=== PATIENT | male | born 1945 | race Caucasian/White ===

== ENCOUNTER → 2024-07-02 | Outpatient (CLI) | payer MEDICARE, SELFPAY ==
[2024-07-02] MEDS: SODIUM CHLORIDE RT SOL 0.9% 3 ML NEBU INH (10:24)
[2024-07-02 10:30] VITALS: PULSE 50
[2024-07-02] MEDS: ALBUTEROL RT 2.5 MG/0.5 ML NEBU INH (10:30)
[2024-07-02 10:32] VITALS: PULSE 51; RESP 20; O2SAT 98
[2024-07-02 10:44] VITALS: PULSE 50; RESP 20; O2SAT 96
== END | disposition home or self-care (01) ==
LOC: SRTX 08:58
PROVIDERS: PCP Family Medicine; Referring Provider Specialist; Visit Provider Specialist
DX: R06.02 Shortness of breath (principal)
CPT/HCPCS: 94060; 94640; 94726; 94729

== ENCOUNTER → 2024-10-03 | Outpatient (CLI) | payer MEDICARE, BC, SELFPAY ==
[2024-10-03 13:47] LABS: Basophils # (Auto) 0.0 Thou/mm3 (0.0-0.2); Basophils % (Auto) 1 % (0-2.5); Eosinophils # (Auto) 0.0 Thou/mm3 (0.0-0.5); Eosinophils % (Auto) 1 % (0-10); Hematocrit 39.1 % (41.0-53.0); Hemoglobin 13.4 g/dL (13.5-16.0); Immature Granulocytes Auto 0.05 Thou/mm3 (0.00-0.00); Lymphocytes # (Auto) 1.3 Thou/mm3 (1.0-4.8); Lymphocytes % (Auto) 30 % (10-50); Mean Corpuscular HGB Conc 34.3 g/dl (31.0-37.0); Mean Corpuscular Hemoglobin 35.4 pg (25.0-35.0); Mean Corpuscular Volume 103 fL (80-100); Monocytes # (Auto) 0.5 Thou/mm3 (0.0-0.8); Monocytes % (Auto) 13 % (0-12); Neutrophils # (Auto) 2.3 Thou/mm3 (1.8-7.7); Neutrophils % (Auto) 54 % (37-80); Nucleated Red Blood Cell # 0.00 Thou/mm3 (0.00-0.00); Nucleated Red Blood Cell % 0 /100 WBC (0); Platelet Count 119 Thou/mm3 (140-440); RDW Standard Deviation 46.1 fL (35.1-43.9); Red Blood Count 3.79 Miln/mm3 (4.50-5.90); White Blood Count 4.3 Thou/mm3 (3.8-10.6)
[2024-10-03 14:08] LABS: Alanine Aminotransferase 24 U/L (10-49); Albumin, Serum 4.2 gm/dL (3.4-4.8); Albumin/Globulin Ratio 2.0 (1.2-2.2); Alkaline Phosphatase 83 U/L (46-116); Anion Gap 3 (7-16); Aspartate Amino Transferase 19 U/L (0-34); BUN/Creatinine Ratio 22 Ratio (12-20); Bilirubin,Total 0.7 mg/dL (0.3-1.2); Blood Urea Nitrogen 20 mg/dL (9-23); Calcium 9.5 mg/dL (8.3-10.6); Calcium (Corrected) 9.5 mg/dL (8.5-10.1); Carbon Dioxide 30.4 mMol/L (20.0-31.0); Chloride 111 mMol/L (98-107); Creatinine (Component) 0.9 mg/dL (0.6-1.3); Globulin 2.1 gm/dL (2.3-3.5); Glucose 107 mg/dL (74-106); Osmolality,Calculated 289 (275-295); Potassium 4.8 mMol/L (3.4-5.1); Sodium 144 mMol/L (136-145); Total Protein 6.3 gm/dL (5.7-8.2); eGFR > 60 See Note
== END | disposition home or self-care (01) ==
LOC: COPL 12:27
PROVIDERS: PCP Family Medicine; Referring Provider Family Medicine; Visit Provider Family Medicine
DX: Z01.818 Encounter for other preprocedural examination (principal); I10 Essential (primary) hypertension
CPT/HCPCS: 36415; 80053; 85025

== ENCOUNTER → 2024-11-05 | Outpatient (CLI) | payer MEDICARE, BC, SELFPAY ==
[2024-11-05 13:42] LABS: Basophils # (Auto) 0.0 Thou/mm3 (0.0-0.2); Basophils % (Auto) 1 % (0-2.5); Eosinophils # (Auto) 0.0 Thou/mm3 (0.0-0.5); Eosinophils % (Auto) 1 % (0-10); Hematocrit 42.6 % (41.0-53.0); Hemoglobin 14.5 g/dL (13.5-16.0); Immature Granulocytes Auto 0.03 Thou/mm3 (0.00-0.00); Lymphocytes # (Auto) 1.1 Thou/mm3 (1.0-4.8); Lymphocytes % (Auto) 28 % (10-50); Mean Corpuscular HGB Conc 34.0 g/dl (31.0-37.0); Mean Corpuscular Hemoglobin 35.5 pg (25.0-35.0); Mean Corpuscular Volume 104 fL (80-100); Monocytes # (Auto) 0.5 Thou/mm3 (0.0-0.8); Monocytes % (Auto) 12 % (0-12); Neutrophils # (Auto) 2.4 Thou/mm3 (1.8-7.7); Neutrophils % (Auto) 59 % (37-80); Nucleated Red Blood Cell # 0.00 Thou/mm3 (0.00-0.00); Nucleated Red Blood Cell % 0 /100 WBC (0); Platelet Count 148 Thou/mm3 (140-440); RDW Standard Deviation 48.8 fL (35.1-43.9); Red Blood Count 4.09 Miln/mm3 (4.50-5.90); White Blood Count 4.1 Thou/mm3 (3.8-10.6)
[2024-11-05 17:32] LABS: Path Review Blood Smear Sent to Pathologist
== END | disposition home or self-care (01) ==
PROVIDERS: PCP Family Medicine; Referring Provider Family Medicine; Visit Provider Family Medicine
DX: D50.9 Iron deficiency anemia, unspecified (principal)
CPT/HCPCS: 36415; 85025

== ENCOUNTER → 2024-12-26 | Outpatient (CLI) | payer MEDICARE, BC, SELFPAY ==
[2025-01-01 07:10] LABS: Testosterone, Free,Dialysis 30.4 pg/mL (30.0-135.0); Testosterone, Total, Dialysis 195 ng/dL (250-1100)
== END | disposition home or self-care (01) ==
LOC: COPL 10:35
PROVIDERS: PCP Family Medicine; Referring Provider Family Medicine; Visit Provider Family Medicine
DX: R79.9 Abnormal finding of blood chemistry, unspecified (principal)
CPT/HCPCS: 36415; 84402; 84403

== ENCOUNTER 2025-01-03 16:28 | Emergency (ER) | payer MEDICARE, BC, SELFPAY ==
[2025-01-03 16:29] VITALS: BMI 39.7
[2025-01-03 17:05] VITALS: BP 175/98; PULSE 88; RESP 18; TEMP 36.6; O2SAT 100
--- NOTE | 2025-01-03 17:06 | EKG_ITS ---
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1945 Requested By: Anton Boone Order Number: [id number] Reading MD: Anton Boone Measurements Intervals [place] Rate: 50 P: -20 WA: 261 QRS: -58 QRSD: 141 T: -70 QT: 433 QTc: 396 Interpretive Statements SINUS BRADYCARDIA WITH FIRST DEGREE AV BLOCK LEFT AXIS DEVIATION [QRS AXIS < -30] RIGHT BUNDLE BRANCH BLOCK [120+ ms QRS DURATION, UPRIGHT V1, 40+ ms S IN I/aVL/V4/V5/V6] MODERATE T-WAVE ABNORMALITY, CONSIDER INFERIOR ISCHEMIA [-0.1+ mV T-WAVE IN II/aVF] Compared to ECG 02/08/2024 09:04:12 First degree AV block now present Left-axis deviation now present Left anterior fascicular block no longer present Myocardial infarct finding no longer present T-wave abnormality still present Possible ischemia still present /store/S0/[id number]/ecg/[id number].pdf
--- NOTE | 2025-01-03 17:06 | XR_ITS ---
Examination: PA lateral chest 2 views Technique: Upright PA lateral chest 2 views Date and time: January 03, 2025, 1715 hrs., Comparison September 25, 2023 Indications: Chest pain shortness of breath weakness beginning 2 days ago Findings: Mild enlargement cardiac contour Median sternotomy wires Prosthetic aortic valve satisfactory position Increased AP dimension chest Moderate thoracic spondylosis with mild chronic wedging mid to upper dorsal vertebral bodies Multiple old right-sided rib fractures with mild right lateral bony hemithorax deformity No pneumonia or pulmonary edema Blunting of the right lateral and posterior costophrenic angle Impression: Mild enlargement cardiac contour COPD. No pneumonia or pulmonary edema
--- NOTE | 2025-01-03 17:06 | PD.EDRME ---
Rapid Medical Screening Exam E Arrival date/time: 01/03/25 16:28 79-year-old male with a history of hyperlipidemia, hypothyroidism, mitral valve replacement, presents to the emergency room with a chief complaint of shortness of breath and bilateral lower extremity swelling x 4 days I have greeted and performed a focused initial assessment of this patient. A comprehensive ED assessment and evaluation of the patient, analysis of all test results, and completion of the medical decision making process will be conducted by additional ED providers. Chief Complaint: Shortness of Breath/Dyspnea Vital signs: Vital Signs Temperature 98 F 01/03/25 17:05 Pulse Rate 88 01/03/25 17:05 Respiratory Rate 18 01/03/25 17:05 Blood Pressure 175/98 H 01/03/25 17:05 Pulse Oximetry (%) 100 01/03/25 17:05 Oxygen Delivery Method Room Air 01/03/25 17:05 Vital signs reviewed by provider: Yes
[2025-01-03 17:26] LABS: Basophils # (Auto) 0.0 Thou/mm3 (0.0-0.2); Basophils % (Auto) 1 % (0-2.5); Eosinophils # (Auto) 0.1 Thou/mm3 (0.0-0.5); Eosinophils % (Auto) 1 % (0-10); Hematocrit 34.5 % (41.0-53.0); Hemoglobin 11.8 g/dL (13.5-16.0); Immature Granulocytes Auto 0.08 Thou/mm3 (0.00-0.00); Lymphocytes # (Auto) 0.9 Thou/mm3 (1.0-4.8); Lymphocytes % (Auto) 18 % (10-50); Mean Corpuscular HGB Conc 34.2 g/dl (31.0-37.0); Mean Corpuscular Hemoglobin 35.9 pg (25.0-35.0); Mean Corpuscular Volume 105 fL (80-100); Monocytes # (Auto) 0.4 Thou/mm3 (0.0-0.8); Monocytes % (Auto) 8 % (0-12); Neutrophils # (Auto) 3.4 Thou/mm3 (1.8-7.7); Neutrophils % (Auto) 70 % (37-80); Nucleated Red Blood Cell # 0.00 Thou/mm3 (0.00-0.00); Nucleated Red Blood Cell % 0 /100 WBC (0); Platelet Count 105 Thou/mm3 (140-440); RDW Standard Deviation 46.8 fL (35.1-43.9); Red Blood Count 3.29 Miln/mm3 (4.50-5.90); White Blood Count 4.8 Thou/mm3 (3.8-10.6)
[2025-01-03 17:43] LABS: INR 1.1 (0.9-1.3); Partial Thromboplastin Time 21.9 Seconds (22.0-36.0); Prothrombin Time 11.5 Seconds (9.0-12.2)
[2025-01-03 17:47] LABS: Alanine Aminotransferase 49 U/L (10-49); Albumin, Serum 3.6 gm/dL (3.4-4.8); Albumin/Globulin Ratio 2.0 (1.2-2.2); Alkaline Phosphatase 63 U/L (46-116); Anion Gap 7 (7-16); Aspartate Amino Transferase 25 U/L (0-34); BUN/Creatinine Ratio 24 Ratio (12-20); Bilirubin,Total 0.9 mg/dL (0.3-1.2); Blood Urea Nitrogen 22 mg/dL (9-23); Calcium 9.6 mg/dL (8.3-10.6); Calcium (Corrected) 9.9 mg/dL (8.5-10.1); Carbon Dioxide 27.1 mMol/L (20.0-31.0); Chloride 114 mMol/L (98-107); Creatinine (Component) 0.9 mg/dL (0.6-1.3); Estimated Creatinine Clearance 89.7 mL/min (>60); Globulin 1.8 gm/dL (2.3-3.5); Glucose 116 mg/dL (74-106); Magnesium 2.0 mg/dL (1.6-2.6); Osmolality,Calculated 298 (275-295); Potassium 5.2 mMol/L (3.4-5.1); Sodium 148 mMol/L (136-145); Total Protein 5.4 gm/dL (5.7-8.2); Troponin I < 0.020 ng/mL (0.0-0.045); eGFR > 60 See Note
[2025-01-03 17:48] LABS: B-Type Natriuretic Peptide 536 pg/mL (0-100)
--- NOTE | 2025-01-03 18:21 | PD.EDSOB ---
ED SOB =RME/HPI General Chief Complaint: Shortness of Breath/Dyspnea Stated Complaint: SOB, SWELLING TO HANDS,FEET, FACE, STOMACH Time Seen by Provider: 01/03/25 18:14 Arrival date/time: 01/03/25 16:28 RME / HPI RME / HPI Narrative: 01/03/25 16:28 79-year-old male with a history of hyperlipidemia, hypothyroidism, mitral valve replacement, presents to the emergency room with a chief complaint of shortness of breath and bilateral lower extremity swelling x 4 days I have greeted and performed a focused initial assessment of this patient. A comprehensive ED assessment and evaluation of the patient, analysis of all test results, and completion of the medical decision making process will be conducted by additional ED providers. See MDM for Dr. Parker's Main ED Evaluation. Related Data Home Medications ?Medication ?Instructions ?Recorded ?Confirmed levothyroxine 200 mcg tablet 200 mcg PO QDAY 02/10/20 02/09/24 loratadine 10 mg tablet (Claritin) 10 mg PO QDAY 02/10/20 02/09/24 clopidogrel 75 mg tablet 75 mg PO BID 09/24/23 02/09/24 rosuvastatin 10 mg tablet 10 mg PO QDAY 09/24/23 09/24/23 aspirin 81 mg tablet 81 mg PO QDAY 02/09/24 02/09/24 Previous Rx's ?Medication ?Instructions ?Recorded furosemide 40 mg tablet (Lasix) 40 mg PO QAM #30 tabs 01/03/25 Allergies Allergy/AdvReac Type Severity Reaction Status Date / Time No Known Allergies Allergy Verified 01/03/25 16:29 Review of Systems Review of Systems Systems Reviewed: All systems reviewed, normal except as documented Past Medical History Past Medical History NEUROLOGIC: Negative Neurological Disorders, Cerebrovascular Accident, Transient Ischemic Attacks (TIA), Dementia, Alzheimer's Disease, Parkinson's Disease, Brain Tumor, Meningitis, Seizures, Epilepsy, Multiple Sclerosis, Cerebral Palsy, Guillain-[place] Syndrome, Spina Bifida, Paralysis, Peripheral Neuropathy, Tucker's Palsy, Subdural Hematoma, Migraine, Head Trauma, Spinal Cord Injury or Traumatic Brain Injury CARDIAC: Positive Cardiac Disorders, Heart Murmur and Valvular Heart Disease (8yrs aortic valve replaced); Negative Myocardial Infarction, Cardiac Arrhythmia, Atrial Fibrillation, Angina, Coronary Artery Disease, Atherosclerotic Heart Disease, Peripheral Vascular Disease, Hypercholesterolemia, Aneurysm, Congestive Heart Failure, Congenital Heart Disease, Rheumatic Fever, Cardiomyopathy, Edema, Pericarditis, Cellulitis, Deep Vein Thrombosis, Hypertension, Hypotension or Varicose Veins RESPIRATORY: Positive Sleep Apnea (cpap at night); Negative Chronic Obstructive Pulmonary Disease (COPD), Asthma or Bronchitis GASTROINTESTINAL: Positive Diverticulitis and Obesity; Negative Gastrointestinal Disorders, Hepatitis, Cirrhosis, Pancreatitis, Celiac Disease, Gall Bladder Disease, Gastrointestinal Bleed, Esophageal Varices, Queen's Esophagus, Colitis, Ulcerative Colitis, Diverticulosis, Ulcer, Colorectal Cancer, Irritable Bowel, Crohn's Disease, Obstructive Bowel, Hiatal Hernia, Hemorrhoids or Gastroesophageal Reflux Disease GENITOURINARY: Positive Genitourinary Disorders and Benign Prostatic Hyperplasia; Negative Renal Disease, Kidney Stones, Polycystic Kidney Disease, Neurogenic Bladder, Inguinal Hernia, Dialysis or Prostate Cancer REPRODUCTIVE: Negative Breast Cancer, Genital Herpes, Gonorrhea, Syphilis or Testicular Cancer MUSCULOSKELETAL: Positive Fractures (multiple left forarm; right ring finger rods); Negative Musculoskeletal Disorders, Muscular Dystrophy, Myasthenia Gravis, Marfan's Syndrome, Bone Cancer, Arthritis, Rheumatoid Arthritis, Osteoporosis, Degenerative Disk Disease, Gout, Scoliosis, Carpal Tunnel Syndrome, Fibromyalgia, Degenerative Joint Disease, Osteomyelitis or Poliovirus ENT: Positive Cataracts (bilateral eyes); Negative Glaucoma, Blind, Retinal Detachment, Macular Degeneration, Ear Infection, Deafness, Head Trauma or Eye Prosthesis ENDOCRINE: Positive Hyperthyroidism and Graves' Disease; Negative Endocrine Disorders, Diabetes Mellitus Type 1, Diabetes Mellitus Type 2, Hypoglycemia, Anita's Syndrome, Brockton's Disease, Hypothyroidism, Parathyroid Disease, Pituitary Disease, Systemic Lupus Erythematosus, Syndrome of Inappropriate Antidiuretic Hormone (SIADH) or Adrenal Disease HEMATOLOGIC: Negative Blood Disorders, Anemia, Leukemia, Hemophilia, Thalassemia, Sickle Cell Disease or Clotting Problems PSYCHO/SOCIAL: Positive Attention Deficit Disorder and Attention Deficit Hyperactivity Disorder; Negative Psychiatric Problems, Schizophrenia, Recreational Drug Use, Bipolar Disorder, Depression, Anxiety, Behavior Problems, Self-Mutilation, Depression, Post Traumatic Stress Disorder or Eating Disorder OTHER HISTORY: Positive Blood Transfusions, Radiation Therapy, Chicken Pox and Cancer; Negative Autoimmune Disease, Down Syndrome, Autism, Developmental Delay, Falls, Blood Transfusion Reaction, Anesthesia Reactions, Organ Transplant, Chemotherapy, Hyperbaric Therapy, MRSA, VRSA, Vancomycin-Resistant Enterococci, Measles, Mumps, Rubella (Belizean Measles), Pertussis, Clostridium Difficile, Breast Cancer, Colorectal Cancer, Lung Cancer, Ovarian Cancer, Prostate Cancer or Testicular Cancer Family History FAMILY HISTORY: Positive Family Cardiac Disorders; Negative Family Psychiatric Problems, Family Gastrointestinal Problems or Family Cancer Surgical History SURGICAL: Positive Cardiac Surgery, Open Heart Surgery, Valve Replacement, Coronary Stent (stent 4yrs), Cardiac Catheterization, Angiogram, Thyroidectomy, Abdominal Surgery, Joint Replacement (left forarm x2) and Vasectomy; Negative Coronary Artery Bypass Graft, Vascular Surgery, Pacemaker, Auto Implanted Cardiovert Defib, Carotid Endarterectomy, Endocrine Surgery, Ear Surgery, Tympanostomy Tube, Eye Surgery, Nose Surgery, Oral Surgery, Tonsillectomy, Adenoidectomy, Cochlear Implant, Corneal Transplant, Throat Surgery, Tracheostomy, Gastric Bypass Surgery, Gastrostomy, Bowel Surgery, Nephrectomy, Amputation, Open Reduction Internal Fixation, Arthroscopy, Neurologic Surgery, Brain Shunt or Organ Transplant Social History SMOKING STATUS: Former smoker ED Exam Narrative Physical exam: See MDM for Dr. Parker's physical exam documentation. Course Quality Measures none Orders Category Date Time Status EKG (ED ONLY) *Do not use* NOW Care 01/03/25 17:06 Completed EKG (ED Only) Stat Exams 01/03/25 17:06 Stop Req XR chest 2V Stat Exams 01/03/25 17:06 Completed B-Type Natriuretic Peptide Stat Lab 01/03/25 17:19 Completed CBC Stat Lab 01/03/25 17:19 Completed Comprehensive Metabolic Panel Stat Lab 01/03/25 17:19 Completed Magnesium Stat Lab 01/03/25 17:19 Completed Partial Thromboplastin Time Stat Lab 01/03/25 17:19 Completed Prothrombin Time with INR Stat Lab 01/03/25 17:19 Completed Troponin I Stat Lab 01/03/25 17:19 Completed Urinalysis, C/S if Indicated Stat Lab 01/03/25 17:06 Stop Req Furosemide [Lasix] Med 01/03/25 18:17 Discontinued 40 mg PO X1 ONE Vital Signs Vital signs: Vital Signs Temperature 98 F 01/03/25 17:05 Pulse Rate 88 01/03/25 17:05 Respiratory Rate 18 01/03/25 17:05 Blood Pressure 175/98 H 01/03/25 17:05 Pulse Oximetry (%) 100 01/03/25 17:05 Oxygen Delivery Method Room Air 01/03/25 17:05 Shortness of Breath / Dyspnea MDM Narrative MDM Narrative:: This section includes all my notes and documentations, including HPI, PE, and ED course. Vasyl Parker MD HPI: 79yo male with history of CAD, aortic valve replacement, HTN, HLD, hypothyroidism here with about a week history of dyspnea and leg swelling and PND. No chest pain. No fever. No other complaints. ROS: All negative except as documented in HPI. Physical Exam: General: Alert and oriented. No acute distress when remaining still. Eyes: Conjunctivae and lids clear. ENT: No nasal congestion. Neck: Supple. Heart: RRR. Lungs: No respiratory distress. Mildly decreased air movement with rales. Abdomen: Soft and nontender. Normal bowel sounds. No distension. No rebound or guarding. Legs: Pitting edema of lower legs bilaterally. Skin: Warm and dry. Neuro: Alert and oriented X 3. I reviewed all diagnostic test results. My interpretation of the EKG is sinus rhythm with no acute ST?T changes. My interpretation of the chest x-ray is increased vascular congestion. Blood tests remarkable for BNP 536. At this point, diagnoses include: Congestive heart failure Treatment here included: Lasix 40mg PO Recommended outpatient care. Based on my best medical judgment, made decision no further evaluation or treatment indicated at this time. Patient understands and agrees to the discharge instructions customized and printed, see below. Discharge Instructions from Dr. Parker: --After evaluation, there is no immediately life-threatening condition. Such as heart attack. --Your symptoms are due to CHF (congestive heart failure) or fluid in your lungs. See attached handout. --When you were younger, your heart was strong and pumped everything out. Now that your heart is weaker, it?s not able to pump all the blood/fluid out of the heart when it pumps. So the remaining blood/fluid goes back into your lungs. And into feet/legs by gravity. --To help urinate out the extra fluid, take Lasix 40 mg every morning. --When sitting or resting and sleeping, elevate the head of bed and elevate your feet/ankles above your waist level. This is extremely important to get the extra fluid back into your circulation so you can urinate out the extra fluid. --Limit all oral fluid intake to less than 4 cups per 24 hours for 3 days. Then don't go out of your way to drink too much fluid--only when your body tells you to drink. --Eat a banana daily because Lasix can lower your potassium level. --See your private doctor on 01/06/25 for recheck and further care. To make sure there is no serious underlying heart condition, ask to help you get more tests for your heart that cannot be done here in the ER. Such as Holter Monitor (cardiac monitoring at home from a day to even a month), heart stress test (on treadmill or with medication), echocardiogram (imaging of your heart structures), heart catherization (checking for blockages in your heart arteries), and a referral to see a [employer] [facility]. --Seek immediate medical care with worsening or with any concerns. Vasyl Parker MD Patient data External records reviewed:: [facility] previous records (Per chart review, patient was admitted here on 09/24/23 for rib fractures.) Clinical information provided by:: patient Social determinants that could affect healthcare access:: none Patient has the following chronic illnesses:: CAD, valve replacement, HTN, HLD, hypothyroidism How is presenting disease/condition affected by chronic disease/condition?: uneffected by Evaluation data The following diagnostics were reviewed and interpreted by me:: lab results, radiology exam(s) and EKG tracing(s) Lab and/or radiology exams considered but not ordered:: none Interpretation Summary: I reviewed all diagnostic test results. My interpretation of the EKG is sinus rhythm with no acute ST?T changes. My interpretation of the chest x-ray is increased vascular congestion. Blood tests remarkable for BNP 536. Medications / Prescriptions Medications or Prescriptions considered but not ordered:: none Medication administrations:: Medication Administration History Discontinued Medications Furosemide (Furosemide 40 Mg Tablet) 40 mg PO X1 ONE Stop: 01/03/25 18:18 Last Admin: 01/03/25 18:37 Dose: 40 mg Documented By: JOYCELYN Lasix 40mg PO Consultations Consultation(s) initiated? (list below): No Diagnosis Shortness of Breath Differential Diagnosis: acute exacerbation of chronic obstructive airways disease, congestive heart failure, community acquired pneumonia and asthma with exacerbation Most likely diagnosis given after review of the tests above:: Congestive heart failure Admission Indicated Admission indicated?: not indicated Explain why admission is indicated or not indicated:: With no condition needing emergent intervention, there was no indication for admission. Admission Request Was there a request for admission?: No Disposition Plan Disposition Plan: Discharge Discharge Attestation Discharge Attestation: The patient and all family members were given an opportunity to ask questions and understood the discharge instructions. Discharge instructions specifically effects, indications for sooner follow up or return to the emergency department, and the expected course of current diagnosis. Patient condition: Stable Discharge Plan Plan Patient Disposition: HOME (Self Care) Prescriptions/Referrals Prescriptions/Med Rec: New furosemide [Lasix] 40 mg tablet 40 mg PO QAM Qty: 30 1RF No Action levothyroxine 200 mcg Tablet 200 mcg PO QDAY loratadine [Claritin] 10 mg Tablet 10 mg PO QDAY clopidogrel 75 mg tablet 75 mg PO BID rosuvastatin 10 mg tablet 10 mg PO QDAY aspirin 81 mg Tablet 81 mg PO QDAY Referrals: Brown Lainez MD [Primary Care Provider, [facility]] - In 1 week Problem List Clinical Impression: Congestive heart failure Patient/Caregiver Discharge Instructions Discharge Activity: activity as tolerated Education Materials: ED CHF Left Side Additional Instructions: Discharge Instructions from Dr. Parker: --After evaluation, there is no immediately life-threatening condition.? Such as heart attack. --Your symptoms are due to CHF (congestive heart failure) or fluid in your lungs.? See attached handout. --When you were younger, your heart was strong and pumped everything out.? Now that your heart is weaker, it?s not able to pump all the blood/fluid out of the heart when it pumps.? So the remaining blood/fluid goes back into your lungs.? And into feet/legs by gravity.? --To help urinate out the extra fluid, take Lasix 40 mg every morning. --When sitting or resting and sleeping, elevate the head of bed and elevate your feet/ankles above your waist level.? This is extremely important to get the extra fluid back into your circulation so you can urinate out the extra fluid. --Limit all oral fluid intake to less than 4 cups per 24 hours for 3 days. Then don't go out of your way to drink too much fluid--only when your body tells you to drink.?? --Eat a banana daily because Lasix can lower your potassium level.?? --See your private doctor on 01/06/25 for recheck and further care.?? To make sure there is no serious underlying heart condition, ask to help you get more tests for your heart that cannot be done here in the ER.? Such as Holter Monitor (cardiac monitoring at home from a day to even a month), heart stress test (on treadmill or with medication), echocardiogram (imaging of your heart structures), heart catherization (checking for blockages in your heart arteries), and a referral to see a [employer]. --Seek immediate medical care with worsening or with any concerns.? Print Language: Burkinan Stand Alone Forms: [facility] Info., Patient Portal Info Letter
[2025-01-03 18:37] VITALS: BP 171/106; PULSE 50
== END 2025-01-03 19:00 | disposition home or self-care (01) ==
PROVIDERS: Nurse Practitioner Family; Emergency Provider Emergency Medicine; PCP Family Medicine
DX: I11.0 Hypertensive heart disease with heart failure (principal); I50.9 Heart failure, unspecified; E78.5 Hyperlipidemia, unspecified; E03.9 Hypothyroidism, unspecified; Z95.2 Presence of prosthetic heart valve; I25.10 Atherosclerotic heart disease of native coronary artery without angina pectoris
CPT/HCPCS: 36415; 71046; 80053; 81001; 83735; 83880; 84484; 85025; 85610; 85730; 93005; 99284; A9270

== ENCOUNTER → 2025-01-16 | Outpatient (CLI) | payer MEDICARE, BC, SELFPAY ==
[2025-01-27 06:36] LABS: Testosterone, Free,Dialysis 22.7 pg/mL (30.0-135.0); Testosterone, Total, Dialysis 213 ng/dL (250-1100)
== END | disposition home or self-care (01) ==
LOC: COPL 14:58
PROVIDERS: PCP Family Medicine; Referring Provider Registered Nurse; Visit Provider Registered Nurse
DX: E29.1 Testicular hypofunction (principal)
CPT/HCPCS: 36415; 84402; 84403

== ENCOUNTER 2025-02-18 06:38 | Day surgery (SDC) | payer MEDICARE, BC, SELFPAY ==
[2025-02-17 13:40] VITALS: BMI 34.9
[2025-02-18] VITALS (10 sets, daily range): BP systolic 114–137; BP diastolic 70–89; PULSE 60–79; RESP 15–20; TEMP 36.1; O2SAT 95–98; BMI 34.9
[2025-02-18] MEDS: MIDAZOLAM INJ 1 MG/ML VIAL 2 ML (ASD USE ONLY) 2 MG IVP (07:33)
[2025-02-18] MEDS: SODIUM CHLORIDE 0.9% 500 ML 500 ML 125 ML IV (07:33)
[2025-02-18] MEDS: fentaNYL CIT INJ 50 mCg/ML AMP 2ML (ASD USE ONLY) IVP (07:34)
--- NOTE | 2025-02-18 08:00 | SUR.PHASEII ---
PT MORE AWAKE AND TOLERATED ORAL INTAKE.
--- NOTE | 2025-02-18 08:00 | SUR.PHASEII ---
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
--- NOTE | 2025-02-18 08:17 | SUR.PHASEII ---
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
== END 2025-02-18 08:26 | disposition home or self-care (01) ==
PROVIDERS: PCP Family Medicine; Referring Provider Surgery; Visit Provider Surgery
PROC: 0DBE8ZX Excision of Large Intestine, Via Natural or Artificial Opening Endoscopic, Diagnostic (ICD-10-PCS; CPT 45380; principal; 2025-02-18 07:30)
DX: Z12.11 Encounter for screening for malignant neoplasm of colon (principal); D12.3 Benign neoplasm of transverse colon; K64.0 First degree hemorrhoids; K57.30 Diverticulosis of large intestine without perforation or abscess without bleeding; K62.89 Other specified diseases of anus and rectum; Z86.0100 Personal history of colon polyps, unspecified; I25.10 Atherosclerotic heart disease of native coronary artery without angina pectoris; I10 Essential (primary) hypertension; E03.9 Hypothyroidism, unspecified; Z95.5 Presence of coronary angioplasty implant and graft; Z79.890 Hormone replacement therapy; Z79.899 Other long term (current) drug therapy
CPT/HCPCS: 45380; A4649; J1200; J2250; J3010; J7999